=== PATIENT | male | born 1965 | race Caucasian/White ===

== ENCOUNTER 2023-02-27 14:40 | Emergency (ER) | payer OTHER ==
[~2023-02-27] VITALS: Ht 170.2 cm; Wt 77.3 kg
[~2023-02-27 14:40] MED LIST: AMLO5CAP44 PO; AUGM875T28 PO; CELE1CAP4 PO; GABA-1171 PO; LAMO100T3 PO; LAMO200T3 PO; OXYC-517 PO; PANT40TA29 PO; TYLE325T5 PO; VENL150C43 PO
[2023-02-27] MEDS ORDERED: predniSONE 20 MG TAB PO ONE (19:45)
[2023-02-27] MEDS ORDERED: CEPHALEXIN 500 MG CAP PO ONE (19:45)
[2023-02-27] MEDS ORDERED: CEPH500C PO (19:46)
[2023-02-27] MEDS ORDERED: PRED20TA PO (19:46)
[2023-02-27] MEDS ORDERED: EPIP0.3I2 IM (19:46)
[2023-02-27 19:52] VITALS: BP 131/69; TEMP 97.7; O2SAT 99
== END 2023-02-27 19:59 | disposition home or self-care (01) ==
LOC: M ED 14:40
DX: S60.561A Insect bite (nonvenomous) of right hand, initial encounter (principal); W57.XXXA Bitten or stung by nonvenomous insect and other nonvenomous arthropods, initial encounter; Y92.009 Unspecified place in unspecified non-institutional (private) residence as the place of occurrence of the external cause; Y93.89 Activity, other specified; Y99.8 Other external cause status; I10 Essential (primary) hypertension; K21.9 Gastro-esophageal reflux disease without esophagitis; Z88.6 Allergy status to analgesic agent; Z79.899 Other long term (current) drug therapy
CPT/HCPCS: 93005; 99284; J7512